=== PATIENT | male | born 1960 | race Caucasian/White ===

== ENCOUNTER 2018-06-20 15:27 | Inpatient (IN) | payer OTHER ==
[2018-06-20 15:31] VITALS: BMI 25.8
--- NOTE | 2018-06-20 18:02 | HP ---
CIWA Score Nausea/Vomitin Muscle Tremors: 2 Anxiety: 2 Agitation: 2 Paroxysmal Sweats: 1-Minimal Palms Moist Orientation: 0-Oriented Tacttile Disturbances: 1-Very Mild Itch/Numbness Auditory Disturbances: 1-Very Mild Visual Disturbances: 0-None Headache: 2-Mild CIWA-Ar Total Score: 13 - Admission Criteria OASAS Guidelines: Admission for Medically Managed Detox: Requires at least one of the followin. CIWA greater than 12 2. Seizures within the past 24 hours 3. Delirium tremens within the past 24 hours 4. Hallucinations within the past 24 hours 5. Acute intervention needed for co occurring medical disorder 6. Acute intervention needed for co occurring psychiatric disorder 7. Severe withdrawal that cannot be handled at a lower level of care (continued vomiting, continued diarrhea, abnormal vital signs) requiring intravenous medication and/or fluids 8. Patient presents the following: CIWA greater than 12 Admission Criteria Met: Admission criteria met Admission ROS BHS - HPI Chief Complaint: i need help to stop drinking alcohol and crack Allergies/Adverse Reactions: Allergies Allergy/AdvReac Type Severity Reaction Status Date / Time No Known Allergies Allergy Verified 11/25/17 17:29 History of Present Illness: this 58 years old male with alcohol and cocaine dependence seeking detox, withdrawal symptom,last detox [facility] 11/25/17 to 11/29/17 completed,seen in [place] today syncope alcohol related bipolar disorder no medication multiple admissions longest perio of sobriety 8 years Exam Limitations: No Limitations - Ebola screening Have you been sick,other than usual withdrawal symptoms: No - Review of Systems Constitutional: Loss of Appetite, Malaise, Night Sweats, Changes in sleep, Weakness EENT: reports: No Symptoms Reported Respiratory: reports: No Symptoms reported Cardiac: reports: No Symptoms Reported GI: reports: Nausea, Poor Appetite, Abdominal cramping : reports: No Symptoms Reported Musculoskeletal: reports: Back Pain, Muscle Pain Integumentary: reports: Dryness Neuro: reports: Headache, Tremors Endocrine: reports: No Symptoms Reported Hematology: reports: No Symptoms Reported Psychiatric: reports: No Sypmtoms Reported, Judgement Intact, Mood/Affect Appropiate, Orientated x3, other (bipolar disorder) Other Systems: Reviewed and Negative Patient History - Patient Medical History Hx Anemia: No Hx Asthma: No Hx Chronic Obstructive Pulmonary Disease (COPD): No Hx Cancer: No Hx Cardiac Disorders: No Hx Congestive Heart Failure: No Hx Hypertension: No Hx Hypercholesterolemia: No Hx Pacemaker: No HX Cerebrovascular Accident: No Hx Seizures: No Hx Dementia: No Hx Diabetes: No Hx Gastrointestinal Disorders: No Hx Genitourinary Disorders: No Hx Sexually Transmitted Disorders: No Hx Renal Disease (ESRD): No Hx Thyroid Disease: No Hx Human Immunodeficiency Virus (HIV): No (last 2018 negative) Hx Hepatitis C: No Hx Depression: Yes (non compliance last 8 months ago) Hx Suicide Attempt: No Hx Bipolar Disorder: Yes Hx Schizophrenia: No Other Medical History: no sucidal,no homicidal - Patient Surgical History Past Surgical History: Yes Hx Neurologic Surgery: No Hx Cataract Extraction: No Hx Cardiac Surgery: No Hx Lung Surgery: No Hx Breast Surgery: No Hx Breast Biopsy: No Hx Abdominal Surgery: No Hx Appendectomy: No Hx Cholecystectomy: No Hx Genitourinary Surgery: No Hx Section: No Hx Orthopedic Surgery: No Hx Hysterectomy: No Other Surgical History: Tonsillectomy 40 years ago Anesthesia Reaction: No - PPD History Previous Implant?: Yes Documented Results: Negative w/proof Implanted On Prior [facility] Admission?: Yes Date: 11/27/17 Results: 0mm PPD to be Administered?: No - Smoking Cessation Smoking history: Never smoked - Substance & Tx. History Hx Alcohol Use: Yes Hx Substance Use: Yes Substance Use Type: Alcohol, Cocaine Hx Substance Use Treatment: Yes (11/25/17 to 11/29/17) - Substances Abused Alcohol Route: Oral Frequency: Daily Amount used: 2 of 6 packs of beer Age of first use: 13 Date of Last Use: 06/20/18 Crack Route: Smoking Frequency: Daily Amount used: 20$ Age of first use: 23 Date of Last Use: 06/20/18 Family Disease History - Family Disease History Family Disease History: Diabetes: Mother (alive ), Other: Father ( , leukemia), Mother Admission Physical Exam S - Vital Signs Vital Signs: Vital Signs - 24 hr 06/20/18 15:28 Temperature 96.5 F L Pulse Rate 78 Respiratory 18 Rate Blood Pressure 139/100 - Physical General Appearance: Yes: Mild Distress, Tremorous, Irritable, Sweating, Anxious HEENTM: Yes: Normal ENT Inspection, [place], Pharynx Normal Respiratory: Yes: Lungs Clear, Normal Breath Sounds, No Respiratory Distress Neck: Yes: Within Normal Limits, Supple, Trachea in good position Breast: Yes: Within Normal Limits Cardiology: Yes: Within Normal Limits, Regular Rhythm, Regular Rate, S1, S2 Abdominal: Yes: Within Normal Limits, Normal Bowel Sounds, Non Tender, Flat, Soft Genitourinary: Yes: Within Normal Limits Back: Yes: Muscle Spasm Musculoskeletal: Yes: Back pain, Muscle Pain Extremities: Yes: Tremors Neurological: Yes: public health dentist II-XII NML intact, Fully Oriented, Alert, Motor Strength 5/5 Integumentary: Yes: Dry Lymphatic: Yes: Within Normal Limits - Diagnostic (1) Alcohol dependence with withdrawal Current Visit: No Status: Acute Qualifiers: Complication of substance-induced condition: uncomplicated Qualified Code(s ): F10.230 - Alcohol dependence with withdrawal, uncomplicated (2) Cocaine dependence Current Visit: No Status: Acute Qualifiers: Substance use status: uncomplicated Qualified Code(s): F14.20 - Cocaine dependence, uncomplicated (3) Bipolar disorder Current Visit: No Status: Chronic Qualifiers: Active/Remission status: remission status unspecified Qualified Code(s): F31.9 - Bipolar disorder, unspecified (4) Weight loss Current Visit: Yes Status: Acute (5) GERD (gastroesophageal reflux disease) Current Visit: No Status: Chronic Qualifiers: Esophagitis presence: without esophagitis Qualified Code(s): K21.9 - Gastro -esophageal reflux disease without esophagitis Cleared for Admission BHS - Detox or Rehab [facility] Level of Care: Medically Managed Detox Regimen/Protocol: Librium S Breath Alcohol Content Breath Alcohol Content: 0 Urine Drug Screen - Results Drug Screen Negative: No Urine Drug Screen Results: FRANSICO-Cocaine
[2018-06-20] MEDS ORDERED: MAGNESIUM HYDROX 2400MG/30ML ORAL SUSPENSION 30 ML CUP PO PRN (18:12)
[2018-06-20] MEDS ORDERED: hydrOXYzine PAMOATE 25 MG CAPSULE (FP) PO PRN (18:12)
[2018-06-20] MEDS ORDERED: IBUPROFEN 400 MG TABLET (FP) PO PRN (18:12)
[2018-06-20] MEDS ORDERED: MAGNESIUM CITRATE 300 ML BOTTLE PO PRN (18:12)
[2018-06-20] MEDS ORDERED: guaiFENesin/D-METHORPHAN HB 10 ML UNIT-DOSE CUPS PO PRN (18:12)
[2018-06-20] MEDS ORDERED: MENTHOL/PHENOL 1 EACH UD MM PRN (18:12)
[2018-06-20] MEDS ORDERED: P-EPHED 60MG/TRIPROLIDI 2.5MG TABLET PO PRN (18:12)
[2018-06-20] MEDS: chlordiazePOXIDE HCL 25 MG CAPSULE PO PRN (20:13)
[2018-06-20] MEDS: chlordiazePOXIDE HCL 25 MG CAPSULE PO SCH (22:43)
[2018-06-20] MEDS: THIAMINE HCL 100 MG TABLET (FP) PO SCH (22:43)
[2018-06-21 01:50] LABS: URINE APPEARANCE SLCLOUDY; URINE BILIRUBIN NEGATIVE (<2.0 mg/dL); URINE COLOR YELLOW; URINE GLUCOSE (UA) NEGATIVE (NEGATIVE); URINE KETONE NEGATIVE (NEGATIVE); URINE LEUK ESTERASE NEGATIVE (NEGATIVE); URINE NITRITE NEGATIVE (NEGATIVE); URINE PROTEIN NEGATIVE (NEGATIVE); URINE UROBILINOGEN NEGATIVE mg/dL (0.2-1.0)
[2018-06-21] MEDS: MAG HYDROX/AL HYDROX/SIMETH 30 ML UNIT-DOSE CUP PO PRN ×2 (03:10→14:56)
[2018-06-21] MEDS: chlordiazePOXIDE HCL 25 MG CAPSULE PO SCH ×4 (06:26→23:03)
[2018-06-21] MEDS: chlordiazePOXIDE HCL 25 MG CAPSULE PO PRN (06:36)
[2018-06-21 10:53] LABS: ALBUMIN 3.3 g/dl (3.4-5.0); ALK PHOS 52 U/L (45-117); ANION GAP 6 MMOL/L (8-16); BILIRUBIN,TOTAL 0.3 mg/dL (0.2-1); BLOOD UREA NITROGEN 14 mg/dL (7-18); CALCIUM 8.4 mg/dL (8.5-10.1); CHLORIDE 104 mmol/L (98-107); CO2 30 mmol/L (21-32); CREATININE 0.9 mg/dL (0.55-1.3); GLUCOSE,RANDOM 96 mg/dL (74-106); POTASSIUM 3.7 mmol/L (3.5-5.1); SGOT/AST 16 U/L (15-37); SGPT/ALT 21 U/L (13-61); SODIUM 140 mmol/L (136-145); TOT PROT 6.2 g/dl (6.4-8.2)
[2018-06-21 10:54] LABS: HEMOGLOBIN 13.9 GM/dL (11.7-16.9); MCH 26.3 pg (25.7-33.7); MCHC 32.3 g/dl (32.0-35.9); MEAN CELL VOLUME 81.5 fl (80-96); MEAN PLT VOLUME 8.2 fl (7.5-11.1); PLATELET COUNT 221 K/MM3 (134-434); RBC 5.28 M/mm3 (4.00-5.60); RDW 15.4 % (11.9-15.9); WHITE BLOOD COUNT 8.2 K/mm3 (4.0-10.0)
[2018-06-21] MEDS: PANTOPRAZOLE 40 MG TABLET (FP) PO SCH (11:15)
[2018-06-21] MEDS: PRENATAL VITAMINS W/ FOLIC ACID TABLET (FP) PO SCH (11:15)
--- NOTE | 2018-06-21 16:18 | PN ---
S CIWA - CIWA Score Nausea/Vomitin Muscle Tremors: 4-Moderate,w/Arms Extend Anxiety: 4-Mod. Anxious/Guarded Agitation: 1-Slight > Activity Paroxysmal Sweats: 3 Orientation: 0-Oriented Tacttile Disturbances: 1-Very Mild Itch/Numbness Auditory Disturbances: 0-None Visual Disturbances: 0-None Headache: 0-None Present CIWA-Ar Total Score: 15 BHS Progress Note (SOAP) Subjective: Chills, tremor, nausea, interrupted sleep Objective: 06/21/18 16:17 Last Vital Signs Temp Pulse Resp BP Pulse Ox 97.0 F L 89 18 108/66 06/21/18 14:57 06/21/18 14:57 06/21/18 14:57 06/21/18 14:57 Laboratory Tests 06/20/18 06/21/18 06/21/18 23:31 07:30 07:30 WBC 8.2 RBC 5.28 Hgb 13.9 Hct 43.0 MCV 81.5 MCH 26.3 MCHC 32.3 RDW 15.4 Plt Count 221 MPV 8.2 Sodium 140 Potassium 3.7 Chloride 104 Carbon Dioxide 30 Anion Gap 6 L BUN 14 Creatinine 0.9 Creat Clearance w eGFR > 60 Random Glucose 96 Calcium 8.4 L Total Bilirubin 0.3 AST 16 ALT 21 Alkaline Phosphatase 52 Total Protein 6.2 L Albumin 3.3 L Urine Color Yellow Urine Appearance Slcloudy Urine pH 7.0 Ur Specific [place] 1.024 Urine Protein Negative Urine Glucose (UA) Negative Urine Ketones Negative Urine Blood Negative Urine Nitrite Negative Urine Bilirubin Negative Urine Urobilinogen Negative Ur Leukocyte Esterase Negative RPR Titer 06/21/18 07:30 WBC RBC Hgb Hct MCV MCH MCHC RDW Plt Count MPV Sodium Potassium Chloride Carbon Dioxide Anion Gap BUN Creatinine Creat Clearance w eGFR Random Glucose Calcium Total Bilirubin AST ALT Alkaline Phosphatase Total Protein Albumin Urine Color Urine Appearance Urine pH Ur Specific [place] Urine Protein Urine Glucose (UA) Urine Ketones Urine Blood Urine Nitrite Urine Bilirubin Urine Urobilinogen Ur Leukocyte Esterase RPR Titer Nonreactive Labs reviewed Assessment: 06/21/18 16:17 Withdrawal sxs Plan: Continue detox Encouraged PO water intake
--- NOTE | 2018-06-21 19:31 | EKG ---
Test Reason : Blood Pressure : / mmHG Vent. Rate : 063 BPM Atrial Rate : 063 BPM P-R Int : 136 ms QRS Dur : 082 ms QT Int : 428 ms P-R-T Axes : 047 -37 061 degrees QTc Int : 437 ms NORMAL SINUS RHYTHM LEFT AXIS DEVIATION ABNORMAL ECG WHEN COMPARED WITH ECG OF 26-NOV-2017 00:53, NO SIGNIFICANT CHANGE WAS FOUND Confirmed by CORDELIA PORTILLO MD ([id number]) on 06/21/2018 7:31:10 PM Referred By: Lindy Whalen Confirmed By:CORDELIA PORTILLO MD
[2018-06-21] MEDS: THIAMINE HCL 100 MG TABLET (FP) PO SCH (23:03)
[2018-06-22] MEDS: MAG HYDROX/AL HYDROX/SIMETH 30 ML UNIT-DOSE CUP PO PRN (01:40)
[2018-06-22] MEDS: LOPERAMIDE HCL 2 MG CAPSULE PO PRN ×2 (03:29→17:48)
[2018-06-22] MEDS: chlordiazePOXIDE HCL 25 MG CAPSULE PO SCH ×3 (05:42→17:48)
[2018-06-22] MEDS: PRENATAL VITAMINS W/ FOLIC ACID TABLET (FP) PO SCH (10:46)
[2018-06-22] MEDS: PANTOPRAZOLE 40 MG TABLET (FP) PO SCH (10:46)
--- NOTE | 2018-06-22 17:57 | PN ---
S CIWA - CIWA Score Nausea/Vomitin Muscle Tremors: 3 Anxiety: 2 Agitation: 1-Slight > Activity Paroxysmal Sweats: 3 Orientation: 0-Oriented Tacttile Disturbances: 0-None Auditory Disturbances: 0-None Visual Disturbances: 0-None Headache: 0-None Present CIWA-Ar Total Score: 11 BHS Progress Note (SOAP) Subjective: shakes sweats tremors Objective: 06/22/18 17:56 A & O x 3 [address] no acute distress Vital Signs Temperature 98.9 F 06/22/18 13:27 Pulse Rate 94 H 06/22/18 13:27 Respiratory Rate 18 06/22/18 13:27 Blood Pressure 103/68 06/22/18 13:27 O2 Sat by Pulse Oximetry (%) Assessment: 06/22/18 17:56 withdrawal sx Plan: continue detox
[2018-06-22] MEDS: chlordiazePOXIDE 5 MG CAPSULE PO SCH (22:37)
[2018-06-22] MEDS: THIAMINE HCL 100 MG TABLET (FP) PO SCH (22:37)
[2018-06-22] MEDS: MELATONIN 5 MG TABLETS PO PRN (22:37)
[2018-06-23] MEDS: ACETAMINOPHEN 325 MG TABLET (FP) PO PRN ×2 (02:29→11:01)
[2018-06-23] MEDS: MAG HYDROX/AL HYDROX/SIMETH 30 ML UNIT-DOSE CUP PO PRN ×2 (02:29→12:19)
[2018-06-23] MEDS: DIPHENOXYLATE 2.5/ATROPINE.025 1 COMBO TABLET PO PRN ×2 (05:24→17:07)
[2018-06-23] MEDS: ONDANSETRON *ODT* 4 MG TABLET SL PRN ×2 (05:25→09:42)
[2018-06-23] MEDS: chlordiazePOXIDE 5 MG CAPSULE PO SCH ×3 (06:57→17:04)
[2018-06-23] MEDS: PRENATAL VITAMINS W/ FOLIC ACID TABLET (FP) PO SCH (10:18)
[2018-06-23] MEDS: PANTOPRAZOLE 40 MG TABLET (FP) PO SCH (10:18)
--- NOTE | 2018-06-23 14:02 | PN ---
BHS Progress Note (SOAP) Subjective: Diarrhea, poor appetite, tremor, headache, interrupted sleep Objective: 06/23/18 14:00 Last Vital Signs Temp Pulse Resp BP Pulse Ox 97.4 F L 94 H 16 110/70 06/23/18 13:17 06/23/18 13:17 06/23/18 13:17 06/23/18 13:17 Laboratory Tests 06/20/18 06/21/18 06/21/18 23:31 07:30 07:30 WBC 8.2 RBC 5.28 Hgb 13.9 Hct 43.0 MCV 81.5 MCH 26.3 MCHC 32.3 RDW 15.4 Plt Count 221 MPV 8.2 Sodium 140 Potassium 3.7 Chloride 104 Carbon Dioxide 30 Anion Gap 6 L BUN 14 Creatinine 0.9 Creat Clearance w eGFR > 60 Random Glucose 96 Calcium 8.4 L Total Bilirubin 0.3 AST 16 ALT 21 Alkaline Phosphatase 52 Total Protein 6.2 L Albumin 3.3 L Urine Color Yellow Urine Appearance Slcloudy Urine pH 7.0 Ur Specific [place] 1.024 Urine Protein Negative Urine Glucose (UA) Negative Urine Ketones Negative Urine Blood Negative Urine Nitrite Negative Urine Bilirubin Negative Urine Urobilinogen Negative Ur Leukocyte Esterase Negative RPR Titer 06/21/18 07:30 WBC RBC Hgb Hct MCV MCH MCHC RDW Plt Count MPV Sodium Potassium Chloride Carbon Dioxide Anion Gap BUN Creatinine Creat Clearance w eGFR Random Glucose Calcium Total Bilirubin AST ALT Alkaline Phosphatase Total Protein Albumin Urine Color Urine Appearance Urine pH Ur Specific [place] Urine Protein Urine Glucose (UA) Urine Ketones Urine Blood Urine Nitrite Urine Bilirubin Urine Urobilinogen Ur Leukocyte Esterase RPR Titer Nonreactive Labs reviewed Assessment: 06/23/18 14:01 Withdrawal sxs Plan: Continue detox Encouraged PO water intake
[2018-06-23] MEDS: THIAMINE HCL 100 MG TABLET (FP) PO SCH (22:31)
[2018-06-23] MEDS: MELATONIN 5 MG TABLETS PO PRN (22:31)
[2018-06-23] MEDS: chlordiazePOXIDE HCL 10 MG CAPSULE PO SCH (22:32)
[2018-06-24] MEDS: ACETAMINOPHEN 325 MG TABLET (FP) PO PRN ×3 (00:32→18:39)
[2018-06-24] MEDS: DIPHENOXYLATE 2.5/ATROPINE.025 1 COMBO TABLET PO PRN ×3 (03:12→16:48)
[2018-06-24] MEDS: chlordiazePOXIDE HCL 10 MG CAPSULE PO SCH ×3 (06:02→16:48)
[2018-06-24] MEDS: PRENATAL VITAMINS W/ FOLIC ACID TABLET (FP) PO SCH (10:09)
[2018-06-24] MEDS: MAG HYDROX/AL HYDROX/SIMETH 30 ML UNIT-DOSE CUP PO PRN ×2 (10:19→22:31)
[2018-06-24] MEDS: PANTOPRAZOLE 40 MG TABLET (FP) PO SCH (10:48)
--- NOTE | 2018-06-24 12:15 | PN ---
S Progress Note (SOAP) Subjective: Anxious, diarrhea, stomach ache. As per patient, he has been experiencing persistent diarrhea and was started on lomotil. Patient was scheduled for discharge today and his counselor was attempting to get him a rehab bed but patient refused rehab. Patient will be kept today due to persistent diarrhea and discharged home tomorrow. Objective: 06/24/18 12:13 Last Vital Signs Temp Pulse Resp BP Pulse Ox 96.2 F L 76 18 106/72 06/24/18 09:04 06/24/18 09:04 06/24/18 09:04 06/24/18 09:04 Laboratory Tests 06/20/18 06/21/18 06/21/18 23:31 07:30 07:30 WBC 8.2 RBC 5.28 Hgb 13.9 Hct 43.0 MCV 81.5 MCH 26.3 MCHC 32.3 RDW 15.4 Plt Count 221 MPV 8.2 Sodium 140 Potassium 3.7 Chloride 104 Carbon Dioxide 30 Anion Gap 6 L BUN 14 Creatinine 0.9 Creat Clearance w eGFR > 60 Random Glucose 96 Calcium 8.4 L Total Bilirubin 0.3 AST 16 ALT 21 Alkaline Phosphatase 52 Total Protein 6.2 L Albumin 3.3 L Urine Color Yellow Urine Appearance Slcloudy Urine pH 7.0 Ur Specific [place] 1.024 Urine Protein Negative Urine Glucose (UA) Negative Urine Ketones Negative Urine Blood Negative Urine Nitrite Negative Urine Bilirubin Negative Urine Urobilinogen Negative Ur Leukocyte Esterase Negative RPR Titer 06/21/18 07:30 WBC RBC Hgb Hct MCV MCH MCHC RDW Plt Count MPV Sodium Potassium Chloride Carbon Dioxide Anion Gap BUN Creatinine Creat Clearance w eGFR Random Glucose Calcium Total Bilirubin AST ALT Alkaline Phosphatase Total Protein Albumin Urine Color Urine Appearance Urine pH Ur Specific [place] Urine Protein Urine Glucose (UA) Urine Ketones Urine Blood Urine Nitrite Urine Bilirubin Urine Urobilinogen Ur Leukocyte Esterase RPR Titer Nonreactive Labs reviewed Assessment: 06/24/18 12:13 Withdrawal sxs Plan: Continue detox Encouraged PO water intake Lomotil changed to q6h prn to better control diarrhea Patient for discharge home tomorrow
[2018-06-24] MEDS: THIAMINE HCL 100 MG TABLET (FP) PO SCH (22:22)
[2018-06-24] MEDS: MELATONIN 5 MG TABLETS PO PRN (22:23)
[2018-06-25] MEDS: ACETAMINOPHEN 325 MG TABLET (FP) PO PRN (05:44)
[2018-06-25] MEDS: MAG HYDROX/AL HYDROX/SIMETH 30 ML UNIT-DOSE CUP PO PRN (07:37)
[2018-06-25 09:13] VITALS: BP 117/69; PULSE 93; TEMP 97.2
[2018-06-25] MEDS: PRENATAL VITAMINS W/ FOLIC ACID TABLET (FP) PO SCH (10:08)
[2018-06-25] MEDS: PANTOPRAZOLE 40 MG TABLET (FP) PO SCH (10:08)
--- NOTE | 2018-06-25 10:27 | DS ---
[facility] Detox Discharge Summary Admission Date: 06/20/18 Discharge Date: 06/25/18 - History Present History: Alcohol Dependence, Cocaine Dependence Additional Comments: Patient is for discharge today. He was scheduled for discharge yesterday but had persistent diarrhea. Patient was on lomotil which was changed to q6hr prn with good effect. Patient presently denied any diarrhea and stated that he is feeling much better and diarrhea resolved. Instructed to drink more water for hydration and to follow up with his PCP within 1-2 weeks. Pertinent Past History: Alcohol dependence Cocaine dependence Bipolar disorder - Physical Exam Results Vital Signs: Vital Signs Temperature 97.2 F L 06/25/18 09:13 Pulse Rate 93 H 06/25/18 09:13 Respiratory Rate 18 06/25/18 09:13 Blood Pressure 117/69 06/25/18 09:13 O2 Sat by Pulse Oximetry (%) Pertinent Admission Physical Exam Findings: Withdrawal symptoms Laboratory Tests 06/20/18 06/21/18 06/21/18 23:31 07:30 07:30 WBC 8.2 RBC 5.28 Hgb 13.9 Hct 43.0 MCV 81.5 MCH 26.3 MCHC 32.3 RDW 15.4 Plt Count 221 MPV 8.2 Sodium 140 Potassium 3.7 Chloride 104 Carbon Dioxide 30 Anion Gap 6 L BUN 14 Creatinine 0.9 Creat Clearance w eGFR > 60 Random Glucose 96 Calcium 8.4 L Total Bilirubin 0.3 AST 16 ALT 21 Alkaline Phosphatase 52 Total Protein 6.2 L Albumin 3.3 L Urine Color Yellow Urine Appearance Slcloudy Urine pH 7.0 Ur Specific [place] 1.024 Urine Protein Negative Urine Glucose (UA) Negative Urine Ketones Negative Urine Blood Negative Urine Nitrite Negative Urine Bilirubin Negative Urine Urobilinogen Negative Ur Leukocyte Esterase Negative RPR Titer 06/21/18 07:30 WBC RBC Hgb Hct MCV MCH MCHC RDW Plt Count MPV Sodium Potassium Chloride Carbon Dioxide Anion Gap BUN Creatinine Creat Clearance w eGFR Random Glucose Calcium Total Bilirubin AST ALT Alkaline Phosphatase Total Protein Albumin Urine Color Urine Appearance Urine pH Ur Specific [place] Urine Protein Urine Glucose (UA) Urine Ketones Urine Blood Urine Nitrite Urine Bilirubin Urine Urobilinogen Ur Leukocyte Esterase RPR Titer Nonreactive Labs reviewed - Treatment Hospital Course: Detox Protocol Followed, Detoxed Safely, Responded well, Discharged Condition Good - Medication Discharge Medications: Ambulatory Orders Omeprazole 20 mg PO DAILY 11/25/17 Quetiapine Fumarate [Seroquel] 100 mg PO HS #30 tablet 11/28/17 - Diagnosis (1) Alcohol dependence with withdrawal Current Visit: Yes Status: Acute Qualifiers: Complication of substance-induced condition: uncomplicated Qualified Code(s ): F10.230 - Alcohol dependence with withdrawal, uncomplicated (2) Cocaine dependence Current Visit: Yes Status: Chronic Qualifiers: Substance use status: uncomplicated Qualified Code(s): F14.20 - Cocaine dependence, uncomplicated (3) Bipolar disorder Current Visit: Yes Status: Chronic Qualifiers: Active/Remission status: remission status unspecified Qualified Code(s): F31.9 - Bipolar disorder, unspecified (4) Diarrhea Current Visit: Yes Status: Resolved - AMA Did Patient Leave Against Medical Advice: No (F/U with your PCP within 1-2 weeks )
== END 2018-06-25 10:12 | disposition home or self-care (01) | DRG 774 ==
LOC: YASAS 15:27 → Y3N 18:29
PROC: HZ2ZZZZ Detoxification Services for Substance Abuse Treatment (ICD-10-PCS; principal; 2018-06-20)
DX: F10.230 Alcohol dependence with withdrawal, uncomplicated (principal); F14.20 Cocaine dependence, uncomplicated; F19.24 Other psychoactive substance dependence with psychoactive substance-induced mood disorder; F31.9 Bipolar disorder, unspecified; F99 Mental disorder, not otherwise specified; K21.9 Gastro-esophageal reflux disease without esophagitis; K00.0 Anodontia; R63.4 Abnormal weight loss; Z68.24 Body mass index [BMI] 24.0-24.9, adult; R19.7 Diarrhea, unspecified
CPT/HCPCS: 36415; 80053; 81003; 85027; 86593; 93005; 93010; Q0162